=== PATIENT | female | born 1930 | race Caucasian/White ===

== ENCOUNTER 2019-04-11 17:49 | Inpatient (IN) ==
[2019-04-11] MEDS ORDERED: ONDANSETRON 4 MG/2 ML VIAL IV STA (18:23)
[2019-04-11] MEDS ORDERED: SODIUM CHLORIDE 0.9% 1,000 ML IV STA (18:23)
[2019-04-11 18:49] LABS: Basophils % 0.2 % (0.0-0.8); Eosinophils % 0.1 % (0.00-10.9); Hematocrit 32.9 VOL% (35.7-47.0); Hemoglobin 10.4 GM/DL (12.0-16.0); Immature Granulocytes % 0.7 %; Immature Granulocytes Absolute 0.13 #; Lymphocytes # 0.2 10*3/uL (1.4-4.0); Lymphocytes % 1.4 % (21.3-54.2); Mean Corpuscular HGB Conc 31.6 GM/DL (32-36); Mean Corpuscular Volume 95.1 FL (87-102); Mean Platelet Volume 8.6 FL (9.6-12.0); Monocytes % 5.9 % (1.7-12.7); Neutrophils % 91.7 % (38.7-73.9); Platelet Count 255 T/CUMM (130-400); Red Blood Count 3.46 MC/CUMM (3.8-5.5); Red Cell Distribution Width 13.3 % (9.3-17.3); White Blood Count 17.4 T/CUMM (4-12)
[2019-04-11 19:04] LABS: Albumin 2.5 G/DL (3.4-5.0); Bilirubin,Total 0.8 MG/DL (0.2-1.0); Calcium 8.4 MG/DL (8.5-10.1); Osmolality,Calculated 297.8 MOS/KG (273-304); Total Protein 5.9 G/DL (6.4-8.3)
[2019-04-11] MEDS ORDERED: PANTOPRAZOLE INJ 80 MG in SODIUM CHLORIDE 0.9% 100 ML IV ONE (19:10)
[2019-04-11 19:25] LABS: Apearance,Urine CLOUDY (Clear); Bacteria,Urine Occasional /HPF (Few); Bilirubin,Urine Negative (Negative); Blood, Urine Small mg/dL (Negative); Glucose,Urine (UA) Negative (Negative); Ketones,Urine Negative (Negative); Mucus,Urine Occasional /LPF (Occasional); Nitrite,Urine Negative (Negative); Protein,Urine Negative; RBC,Urine 3 /HPF (0-4); Squamous Epithelial Cell,Urine Occasional /HPF (0-10); Urine Color Yellow (Yellow); Urine Specific Gravity 1.009 (1.001-1.035); WBC,Urine 98 /HPF (0-6)
[2019-04-11 19:28] LABS: Lymphocytes 1 % (20-55); Segmented Neutrophils 94 % (50-85); Total Cells Counted 100
[2019-04-11 19:29] LABS: Platelet Estimate Normal; Polychromasia Few
[2019-04-11 19:30] LABS: Anisocytosis Slight; Hypochromasia Slight
[2019-04-11] MEDS ORDERED: LEVOFLOXACIN INJ 500 MG in PREMIX 1 EACH IV STA (19:44)
[2019-04-11] MEDS ORDERED: ONDANSETRON 4 MG/2 ML VIAL IV PRN (20:42)
[2019-04-11] MEDS ORDERED: SODIUM CHLORIDE 0.9% 1,000 ML IV SCH (21:00)
[2019-04-11] MEDS ORDERED: DEXTROSE 50% 25 GM/50 ML VIAL IV PRN (21:02)
[2019-04-11] MEDS ORDERED: GLUCAGON 1 MG VIAL IM PRN (21:02)
[2019-04-11 23:38] LABS: Hematocrit 28.7 VOL% (35.7-47.0); Hemoglobin 9.2 GM/DL (12.0-16.0)
[2019-04-12] MEDS: INSULIN LISPRO 100 UNIT/ML SUBCUT SCH ×4 (00:31→19:21)
[2019-04-12 00:52] LABS: Basophils % 0.2 % (0.0-0.8); Hematocrit 29.7 VOL% (35.7-47.0); Hemoglobin 9.5 GM/DL (12.0-16.0); Immature Granulocytes % 1.2 %; Immature Granulocytes Absolute 0.28 #; Lymphocytes # 0.5 10*3/uL (1.4-4.0); Lymphocytes % 2.2 % (21.3-54.2); Mean Platelet Volume 9.1 FL (9.6-12.0); Monocytes % 4.8 % (1.7-12.7); Neutrophils % 91.6 % (38.7-73.9); Platelet Count 256 T/CUMM (130-400); Red Blood Count 3.16 MC/CUMM (3.8-5.5); Red Cell Distribution Width 13.3 % (9.3-17.3); White Blood Count 22.7 T/CUMM (4-12)
[2019-04-12] MEDS: QUEtiapine 25 MG TABLET PO SCH ×2 (00:58→20:24)
[2019-04-12 01:04] LABS: PT Patient Result 10.7 SECS (9.6-12.2); Partial Thromboplastin Time 24.5 SECS (20.8-36.0)
[2019-04-12 01:09] LABS: Albumin 2.3 G/DL (3.4-5.0); Bilirubin,Total 1.3 MG/DL (0.2-1.0); Calcium 8.4 MG/DL (8.5-10.1); Osmolality,Calculated 305.1 MOS/KG (273-304); Total Protein 5.2 G/DL (6.4-8.3)
[2019-04-12 01:36] LABS: Band Neutrophils 7 % (0-10); Lymphocytes 2 % (20-55); Segmented Neutrophils 91 % (50-85)
[2019-04-12 01:37] LABS: Platelet Estimate Normal; Total Cells Counted 100
[2019-04-12] MEDS: metroNIDAZOLE INJ 500 MG in PREMIX 1 EACH IV SCH ×4 (02:28→22:52)
[2019-04-12] MEDS: PANTOPRAZOLE INJ 200 MG in SODIUM CHLORIDE 0.9% 250 ML IV SCH ×2 (02:30→10:44)
[2019-04-12] MEDS ORDERED: MAGNESIUM SULF RIDER 2 GM in PREMIX 1 EACH IV ONE (07:23)
[2019-04-12] MEDS ORDERED: LEVOFLOXACIN INJ 500 MG in PREMIX 1 EACH IV ONE (07:30)
[2019-04-12] MEDS: DEXTROSE 5% NACL 0.45% 1,000 ML IV SCH ×2 (08:33→19:20)
[2019-04-12] MEDS ORDERED: METOPROLOL SUCCINATE XL 25 MG TABLET PO SCH (09:00)
[2019-04-12] MEDS ORDERED: LACTATED RINGERS 500 ML IV ONE (09:13)
[2019-04-12 09:23] LABS: Hematocrit 28.5 VOL% (35.7-47.0); Hemoglobin 9.1 GM/DL (12.0-16.0)
[2019-04-12 15:18] LABS: Hematocrit 26.2 VOL% (35.7-47.0); Hemoglobin 8.1 GM/DL (12.0-16.0)
[2019-04-12] MEDS ORDERED: SODIUM CHLORIDE 0.9% 1,000 ML IV PRN ×3 (15:40→15:57)
[2019-04-12] MEDS: cefTRIAXone 2,000 MG in SYRINGE 1 EACH IV SCH (15:57)
[2019-04-12 21:35] LABS: Hematocrit 29.7 VOL% (35.7-47.0); Hemoglobin 9.4 GM/DL (12.0-16.0)
[2019-04-13] MEDS: DEXTROSE 5% NACL 0.45% 1,000 ML IV SCH ×4 (00:33→21:00)
[2019-04-13] MEDS: INSULIN LISPRO 100 UNIT/ML SUBCUT SCH ×4 (00:48→17:13)
[2019-04-13 05:25] LABS: Basophils % 0.2 % (0.0-0.8); Eosinophils # 0.2 10*3/uL (0.0-0.87); Eosinophils % 2.1 % (0.00-10.9); Hematocrit 29.9 VOL% (35.7-47.0); Hemoglobin 9.5 GM/DL (12.0-16.0); Immature Granulocytes % 0.6 %; Immature Granulocytes Absolute 0.05 #; Lymphocytes # 0.8 10*3/uL (1.4-4.0); Lymphocytes % 10.2 % (21.3-54.2); Mean Corpuscular HGB Conc 31.8 GM/DL (32-36); Mean Corpuscular Volume 94.3 FL (87-102); Mean Platelet Volume 9.1 FL (9.6-12.0); Monocytes % 6.2 % (1.7-12.7); Neutrophils % 80.7 % (38.7-73.9); Platelet Count 195 T/CUMM (130-400); Red Blood Count 3.17 MC/CUMM (3.8-5.5); Red Cell Distribution Width 14.4 % (9.3-17.3); White Blood Count 8.2 T/CUMM (4-12)
[2019-04-13] MEDS: metroNIDAZOLE INJ 500 MG in PREMIX 1 EACH IV SCH ×2 (06:00→15:45)
[2019-04-13 06:07] LABS: Albumin 1.8 G/DL (3.4-5.0); Bilirubin,Direct 0.18 MG/DL (0.0-0.20); Bilirubin,Indirect 0.3 MG/DL (0.0-1.0); Bilirubin,Total 0.5 MG/DL (0.2-1.0); Calcium 7.9 MG/DL (8.5-10.1); Osmolality,Calculated 297.6 MOS/KG (273-304); Total Protein 4.5 G/DL (6.4-8.3)
[2019-04-13] MEDS ORDERED: LEVOFLOXACIN INJ 250 MG in PREMIX 1 EACH IV SCH (07:30)
[2019-04-13 09:05] LABS: Hemoglobin 9.8 GM/DL (12.0-16.0)
[2019-04-13] MEDS: PANTOPRAZOLE INJ 200 MG in SODIUM CHLORIDE 0.9% 250 ML IV SCH (10:05)
[2019-04-13] MEDS: cefTRIAXone 2,000 MG in SYRINGE 1 EACH IV SCH (15:40)
[2019-04-13 16:22] LABS: Hematocrit 32.7 VOL% (35.7-47.0); Hemoglobin 10.5 GM/DL (12.0-16.0)
[2019-04-13] MEDS: QUEtiapine 25 MG TABLET PO SCH (20:34)
[2019-04-14] MEDS: INSULIN LISPRO 100 UNIT/ML SUBCUT SCH ×5 (01:17→23:51)
[2019-04-14] MEDS: metroNIDAZOLE INJ 500 MG in PREMIX 1 EACH IV SCH ×4 (01:19→23:50)
[2019-04-14 05:39] LABS: Basophils % 0.3 % (0.0-0.8); Eosinophils # 0.2 10*3/uL (0.0-0.87); Eosinophils % 3.2 % (0.00-10.9); Hematocrit 30.8 VOL% (35.7-47.0); Hemoglobin 10.2 GM/DL (12.0-16.0); Immature Granulocytes % 0.8 %; Immature Granulocytes Absolute 0.05 #; Lymphocytes # 0.9 10*3/uL (1.4-4.0); Lymphocytes % 13.1 % (21.3-54.2); Mean Corpuscular HGB Conc 33.1 GM/DL (32-36); Mean Corpuscular Volume 91.7 FL (87-102); Monocytes % 6.9 % (1.7-12.7); Neutrophils % 75.7 % (38.7-73.9); Platelet Count 226 T/CUMM (130-400); Red Blood Count 3.36 MC/CUMM (3.8-5.5); Red Cell Distribution Width 13.8 % (9.3-17.3); White Blood Count 6.5 T/CUMM (4-12)
[2019-04-14 06:02] LABS: Calcium 7.5 MG/DL (8.5-10.1); Osmolality,Calculated 286.8 MOS/KG (273-304)
[2019-04-14 06:11] LABS: Albumin 1.9 G/DL (3.4-5.0); Bilirubin,Direct 0.12 MG/DL (0.0-0.20); Bilirubin,Total 1.1 MG/DL (0.2-1.0); Total Protein 4.4 G/DL (6.4-8.3)
[2019-04-14] MEDS: DEXTROSE 5% NACL 0.45% 1,000 ML IV SCH ×3 (06:55→19:01)
[2019-04-14] MEDS ORDERED: POTASSIUM CHLORIDE RIDER 10 MEQ in PREMIX 1 EACH IV PRN (11:41)
[2019-04-14] MEDS ORDERED: MAGNESIUM SULF RIDER 2 GM in PREMIX 1 EACH IV PRN (11:42)
[2019-04-14] MEDS ORDERED: MAGNESIUM SULF RIDER 4 GM in PREMIX 1 EACH IV PRN (11:42)
[2019-04-14] MEDS ORDERED: PANTOPRAZOLE INJ 200 MG in SODIUM CHLORIDE 0.9% 250 ML IV SCH (12:30)
[2019-04-14] MEDS: cefTRIAXone 2,000 MG in SYRINGE 1 EACH IV SCH (14:37)
[2019-04-14] MEDS: POTASSIUM CHLORIDE 20 MEQ TABLET PO PRN ×4 (14:38→23:49)
[2019-04-14] MEDS: QUEtiapine 25 MG TABLET PO SCH (21:14)
[2019-04-15] MEDS: DEXTROSE 5% NACL 0.45% 1,000 ML IV SCH ×3 (03:36→17:12)
[2019-04-15 04:38] LABS: Basophils % 0.4 % (0.0-0.8); Eosinophils # 0.3 10*3/uL (0.0-0.87); Hematocrit 30.9 VOL% (35.7-47.0); Immature Granulocytes % 0.6 %; Immature Granulocytes Absolute 0.03 #; Lymphocytes # 0.9 10*3/uL (1.4-4.0); Lymphocytes % 16.5 % (21.3-54.2); Mean Corpuscular HGB Conc 32.4 GM/DL (32-36); Monocytes % 6.9 % (1.7-12.7); Neutrophils % 69.6 % (38.7-73.9); Platelet Count 214 T/CUMM (130-400); Red Blood Count 3.36 MC/CUMM (3.8-5.5); Red Cell Distribution Width 13.5 % (9.3-17.3); White Blood Count 5.3 T/CUMM (4-12)
[2019-04-15 05:13] LABS: Albumin 1.9 G/DL (3.4-5.0); Bilirubin,Direct 0.14 MG/DL (0.0-0.20); Bilirubin,Indirect 0.3 MG/DL (0.0-1.0); Bilirubin,Total 0.4 MG/DL (0.2-1.0); Calcium 7.9 MG/DL (8.5-10.1); Osmolality,Calculated 295.3 MOS/KG (273-304); Total Protein 4.5 G/DL (6.4-8.3)
[2019-04-15] MEDS: INSULIN LISPRO 100 UNIT/ML SUBCUT SCH ×3 (06:28→18:04)
[2019-04-15] MEDS: metroNIDAZOLE INJ 500 MG in PREMIX 1 EACH IV SCH ×3 (06:28→23:59)
[2019-04-15] MEDS: PANTOPRAZOLE 40 MG VIAL IV SCH ×2 (09:01→20:45)
[2019-04-15] MEDS: cefTRIAXone 2,000 MG in SYRINGE 1 EACH IV SCH (17:12)
[2019-04-15] MEDS: QUEtiapine 25 MG TABLET PO SCH (20:45)
[2019-04-16] MEDS: DEXTROSE 5% NACL 0.45% 1,000 ML IV SCH ×5 (02:48→23:35)
[2019-04-16] MEDS: INSULIN LISPRO 100 UNIT/ML SUBCUT SCH ×4 (06:05→18:51)
[2019-04-16] MEDS: metroNIDAZOLE INJ 500 MG in PREMIX 1 EACH IV SCH ×3 (06:05→23:35)
[2019-04-16] MEDS: PANTOPRAZOLE 40 MG VIAL IV SCH (08:20)
[2019-04-16] MEDS: cefTRIAXone 2,000 MG in SYRINGE 1 EACH IV SCH (13:27)
[2019-04-16] MEDS: PANTOPRAZOLE 40 MG TABLET PO SCH (20:38)
[2019-04-16] MEDS: QUEtiapine 25 MG TABLET PO SCH (20:38)
[2019-04-17] MEDS: INSULIN LISPRO 100 UNIT/ML SUBCUT SCH ×4 (01:53→14:27)
[2019-04-17] MEDS: DEXTROSE 5% NACL 0.45% 1,000 ML IV SCH ×2 (01:53→14:26)
[2019-04-17 05:38] LABS: Basophils % 0.5 % (0.0-0.8); Eosinophils # 0.4 10*3/uL (0.0-0.87); Eosinophils % 6.5 % (0.00-10.9); Hematocrit 30.2 VOL% (35.7-47.0); Hemoglobin 9.8 GM/DL (12.0-16.0); Immature Granulocytes Absolute 0.06 #; Lymphocytes # 1.2 10*3/uL (1.4-4.0); Lymphocytes % 19.8 % (21.3-54.2); Mean Corpuscular HGB Conc 32.5 GM/DL (32-36); Mean Corpuscular Volume 93.2 FL (87-102); Mean Platelet Volume 8.4 FL (9.6-12.0); Monocytes % 6.3 % (1.7-12.7); Neutrophils % 65.9 % (38.7-73.9); Platelet Count 218 T/CUMM (130-400); Red Blood Count 3.24 MC/CUMM (3.8-5.5); Red Cell Distribution Width 13.5 % (9.3-17.3); White Blood Count 6.2 T/CUMM (4-12)
[2019-04-17] MEDS: metroNIDAZOLE INJ 500 MG in PREMIX 1 EACH IV SCH (06:19)
[2019-04-17] MEDS: PANTOPRAZOLE 40 MG TABLET PO SCH (06:19)
[2019-04-17 14:30] VITALS: BP 150/62
== END 2019-04-17 13:18 | disposition home health service (06) | DRG 378 ==
LOC: N.ED 17:49 → SUATTDRO 20:41 → N.EDINP 20:41 → N.5E 21:02
PROVIDERS: ADMIT Internal Medicine; ATTEND Internal Medicine

== ENCOUNTER 2019-05-20 09:37 | Inpatient (IN) ==
[2019-05-20] MEDS ORDERED: PANTOPRAZOLE 40 MG VIAL IV STA (09:55)
[2019-05-20] MEDS ORDERED: SODIUM CHLORIDE 0.9% 500 ML IV STA (09:55)
[2019-05-20] MEDS ORDERED: ONDANSETRON 4 MG/2 ML VIAL IV STA (09:55)
[2019-05-20 10:50] LABS: Basophils % 0.2 % (0.0-0.8); Eosinophils % 0.3 % (0.00-10.9); Hematocrit 37.1 VOL% (35.7-47.0); Hemoglobin 11.8 GM/DL (12.0-16.0); Immature Granulocytes % 0.6 %; Immature Granulocytes Absolute 0.08 #; Lymphocytes # 1.1 10*3/uL (1.4-4.0); Lymphocytes % 7.8 % (21.3-54.2); Mean Corpuscular HGB Conc 31.8 GM/DL (32-36); Mean Corpuscular Volume 94.4 FL (87-102); Mean Platelet Volume 8.5 FL (9.6-12.0); Monocytes % 4.8 % (1.7-12.7); Neutrophils % 86.3 % (38.7-73.9); Platelet Count 329 T/CUMM (130-400); Red Blood Count 3.93 MC/CUMM (3.8-5.5); Red Cell Distribution Width 14.6 % (9.3-17.3); White Blood Count 13.6 T/CUMM (4-12)
[2019-05-20 10:58] LABS: INR 0.9; PT Patient Result 10.1 SECS (9.6-12.2); Partial Thromboplastin Time 25.2 SECS (20.8-36.0)
[2019-05-20 10:58] LABS: Apearance,Urine Slightly Hazy (Clear); Bacteria,Urine Occasional /HPF (Few); Bilirubin,Urine Negative (Negative); Blood, Urine Small mg/dL (Negative); Glucose,Urine (UA) Negative (Negative); Ketones,Urine Negative (Negative); Mucus,Urine Occasional /LPF (Occasional); Nitrite,Urine Negative (Negative); Protein,Urine Negative; RBC,Urine 2 /HPF (0-4); Squamous Epithelial Cell,Urine Occasional /HPF (0-10); Urine Color Yellow (Yellow); Urine Specific Gravity 1.011 (1.001-1.035); Urine Urobilinogen < 2.0 EU/DL (0.2-1.0); WBC,Urine 24 /HPF (0-6)
[2019-05-20 11:07] LABS: Albumin 2.7 G/DL (3.4-5.0); Bilirubin,Total 0.5 MG/DL (0.2-1.0); Calcium 8.4 MG/DL (8.5-10.1); Osmolality,Calculated 284.3 MOS/KG (273-304); Total Protein 6.1 G/DL (6.4-8.3)
[2019-05-20] MEDS ORDERED: ACETAMINOPHEN 325 MG TABLET PO PRN (13:13)
[2019-05-20] MEDS ORDERED: ONDANSETRON 4 MG/2 ML VIAL IV PRN (13:13)
[2019-05-20] MEDS ORDERED: SODIUM CHLORIDE 0.9% 1,000 ML IV PRN (13:16)
[2019-05-20] MEDS: SODIUM CHLORIDE 0.9% 1,000 ML IV SCH (18:00)
[2019-05-20] MEDS ORDERED: PANTOPRAZOLE INJ 80 MG in SODIUM CHLORIDE 0.9% 100 ML IV ONE (18:30)
[2019-05-20 18:35] LABS: Hematocrit 34.3 VOL% (35.7-47.0); Hemoglobin 10.7 GM/DL (12.0-16.0)
[2019-05-20] MEDS: DONEPEZIL 10 MG TABLET PO SCH (21:18)
[2019-05-20] MEDS: CETIRIZINE 10 MG TABLET PO SCH (21:18)
[2019-05-20] MEDS: MAGNESIUM OXIDE 400 MG TABLET PO SCH (21:18)
[2019-05-20 21:59] LABS: Hematocrit 30.9 VOL% (35.7-47.0); Hemoglobin 9.8 GM/DL (12.0-16.0)
[2019-05-20] MEDS: PANTOPRAZOLE INJ 200 MG in SODIUM CHLORIDE 0.9% 250 ML IV SCH (22:31)
[2019-05-21 03:01] LABS: Basophils % 0.3 % (0.0-0.8); Eosinophils # 0.1 10*3/uL (0.0-0.87); Eosinophils % 1.2 % (0.00-10.9); Hematocrit 30.4 VOL% (35.7-47.0); Hemoglobin 9.5 GM/DL (12.0-16.0); Immature Granulocytes % 0.1 %; Immature Granulocytes Absolute 0.01 #; Lymphocytes # 1.2 10*3/uL (1.4-4.0); Lymphocytes % 13.5 % (21.3-54.2); Mean Corpuscular HGB Conc 31.3 GM/DL (32-36); Mean Corpuscular Volume 94.1 FL (87-102); Mean Platelet Volume 8.5 FL (9.6-12.0); Monocytes % 5.9 % (1.7-12.7); Platelet Count 253 T/CUMM (130-400); Red Blood Count 3.23 MC/CUMM (3.8-5.5); Red Cell Distribution Width 14.8 % (9.3-17.3)
[2019-05-21 03:02] LABS: Hematocrit 29.8 VOL% (35.7-47.0); Hemoglobin 9.5 GM/DL (12.0-16.0)
[2019-05-21 03:13] LABS: Calcium 8.1 MG/DL (8.5-10.1); Osmolality,Calculated 283.3 MOS/KG (273-304)
[2019-05-21] MEDS: SODIUM CHLORIDE 0.9% 1,000 ML IV SCH ×2 (06:23→17:23)
[2019-05-21 06:40] LABS: Hematocrit 30.7 VOL% (35.7-47.0); Hemoglobin 9.7 GM/DL (12.0-16.0)
[2019-05-21] MEDS ORDERED: FERROUS SULFATE 325 MG TABLET PO SCH (09:00)
[2019-05-21] MEDS: CHOLECALCIFEROL 1,000 UNIT TABLET PO SCH (10:07)
[2019-05-21] MEDS: MAGNESIUM OXIDE 400 MG TABLET PO SCH ×2 (10:07→20:17)
[2019-05-21] MEDS: METOPROLOL SUCCINATE XL 50 MG TABLET PO SCH (10:07)
[2019-05-21] MEDS: LACTOBACILLUS ACIDOPHILUS/BULGARICUS CAPLET PO SCH (10:07)
[2019-05-21] MEDS: amLODIPine 10 MG TABLET PO SCH (10:07)
[2019-05-21] MEDS: PANTOPRAZOLE 40 MG VIAL IV SCH ×2 (10:08→22:54)
[2019-05-21 10:16] LABS: Hematocrit 33.2 VOL% (35.7-47.0); Hemoglobin 10.5 GM/DL (12.0-16.0)
[2019-05-21] MEDS: CETIRIZINE 10 MG TABLET PO SCH (20:17)
[2019-05-21] MEDS: DONEPEZIL 10 MG TABLET PO SCH (20:17)
[2019-05-22 06:18] LABS: Basophils % 0.4 % (0.0-0.8); Eosinophils # 0.2 10*3/uL (0.0-0.87); Eosinophils % 2.3 % (0.00-10.9); Hematocrit 31.8 VOL% (35.7-47.0); Hemoglobin 10.1 GM/DL (12.0-16.0); Immature Granulocytes % 0.6 %; Immature Granulocytes Absolute 0.05 #; Lymphocytes # 1.3 10*3/uL (1.4-4.0); Lymphocytes % 16.2 % (21.3-54.2); Mean Corpuscular HGB Conc 31.8 GM/DL (32-36); Mean Corpuscular Volume 94.1 FL (87-102); Mean Platelet Volume 8.7 FL (9.6-12.0); Monocytes % 7.5 % (1.7-12.7); Platelet Count 254 T/CUMM (130-400); Red Blood Count 3.38 MC/CUMM (3.8-5.5); Red Cell Distribution Width 14.2 % (9.3-17.3); White Blood Count 7.9 T/CUMM (4-12)
[2019-05-22 06:42] LABS: Calcium 7.7 MG/DL (8.5-10.1); Osmolality,Calculated 287.7 MOS/KG (273-304)
[2019-05-22] MEDS ORDERED: PROPOFOL 200 MG/20 ML VIAL IV ONE (10:00)
[2019-05-22] MEDS: SODIUM CHLORIDE 0.9% 1,000 ML IV SCH ×2 (10:00→21:48)
[2019-05-22] MEDS ORDERED: ETOMIDATE 20 MG/10 ML VIAL IV ONE (10:00)
[2019-05-22] MEDS ORDERED: LIDOCAINE 2% 5 ML VIAL ONE (10:00)
[2019-05-22] MEDS: PANTOPRAZOLE 40 MG VIAL IV SCH ×2 (13:49→20:58)
[2019-05-22] MEDS: CHOLECALCIFEROL 1,000 UNIT TABLET PO SCH (13:50)
[2019-05-22] MEDS: MAGNESIUM OXIDE 400 MG TABLET PO SCH ×2 (13:50→20:57)
[2019-05-22] MEDS: LACTOBACILLUS ACIDOPHILUS/BULGARICUS CAPLET PO SCH (13:50)
[2019-05-22] MEDS: amLODIPine 10 MG TABLET PO SCH (13:50)
[2019-05-22] MEDS: METOPROLOL SUCCINATE XL 50 MG TABLET PO SCH (13:51)
[2019-05-22] MEDS: PANTOPRAZOLE INJ 200 MG in SODIUM CHLORIDE 0.9% 250 ML IV SCH (18:22)
[2019-05-22] MEDS: CETIRIZINE 10 MG TABLET PO SCH (20:58)
[2019-05-22] MEDS: DONEPEZIL 10 MG TABLET PO SCH (20:58)
[2019-05-22] MEDS ORDERED: MIRTAZAPINE 15 MG TABLET PO SCH (21:00)
[2019-05-22] MEDS ORDERED: GLUCAGON 1 MG VIAL IM PRN (21:20)
[2019-05-22] MEDS ORDERED: DEXTROSE 50% 25 GM/50 ML VIAL IV PRN (21:20)
[2019-05-22] MEDS: INSULIN REGULAR 100 UNIT/ML SUBCUT SCH (21:30)
[2019-05-23] MEDS: INSULIN REGULAR 100 UNIT/ML SUBCUT SCH ×2 (07:51→12:26)
[2019-05-23 08:01] LABS: Basophils % 0.5 % (0.0-0.8); Eosinophils # 0.1 10*3/uL (0.0-0.87); Eosinophils % 1.7 % (0.00-10.9); Hemoglobin 10.2 GM/DL (12.0-16.0); Immature Granulocytes % 0.5 %; Immature Granulocytes Absolute 0.03 #; Lymphocytes # 1.3 10*3/uL (1.4-4.0); Lymphocytes % 20.3 % (21.3-54.2); Mean Corpuscular HGB Conc 31.9 GM/DL (32-36); Mean Corpuscular Volume 93.6 FL (87-102); Mean Platelet Volume 8.5 FL (9.6-12.0); Monocytes % 8.9 % (1.7-12.7); Neutrophils % 68.1 % (38.7-73.9); Platelet Count 216 T/CUMM (130-400); Red Blood Count 3.42 MC/CUMM (3.8-5.5); Red Cell Distribution Width 14.5 % (9.3-17.3); White Blood Count 6.5 T/CUMM (4-12)
[2019-05-23] MEDS: PANTOPRAZOLE 40 MG VIAL IV SCH (08:11)
[2019-05-23] MEDS: amLODIPine 10 MG TABLET PO SCH (08:12)
[2019-05-23] MEDS: LACTOBACILLUS ACIDOPHILUS/BULGARICUS CAPLET PO SCH (08:12)
[2019-05-23] MEDS: MAGNESIUM OXIDE 400 MG TABLET PO SCH (08:12)
[2019-05-23] MEDS: METOPROLOL SUCCINATE XL 50 MG TABLET PO SCH (08:12)
[2019-05-23] MEDS: CHOLECALCIFEROL 1,000 UNIT TABLET PO SCH (08:12)
[2019-05-23] MEDS: INSULIN LISPRO 100 UNIT/ML SUBCUT SCH ×2 (08:14→12:26)
[2019-05-23] MEDS: SODIUM CHLORIDE 0.9% 1,000 ML IV SCH (08:15)
[2019-05-23] MEDS ORDERED: INSULIN GLARGINE 100 UNIT/ML SUBCUT SCH (09:00)
[2019-05-23 12:38] VITALS: BP 128/60
== END 2019-05-23 12:35 | disposition home health service (06) | DRG 378 ==
LOC: N.ED 09:37 → N.EDINP 13:13 → SUATTDRO 13:13 → N.EDINP 17:23 → N.2E 17:31
PROVIDERS: ADMIT Emergency Medicine; ATTEND Internal Medicine

== ENCOUNTER 2019-06-19 23:35 | Inpatient (IN) ==
[2019-06-19] MEDS ORDERED: SODIUM CHLORIDE 0.9% 500 ML IV STA (23:57)
[2019-06-19] MEDS ORDERED: PANTOPRAZOLE 40 MG VIAL IV STA (23:57)
[2019-06-19] MEDS ORDERED: METOCLOPRAMIDE 10 MG/2 ML VIAL IV STA (23:57)
[2019-06-20] MEDS ORDERED: DICYCLOMINE 20 MG/2 ML AMP IM ONE (00:14)
[2019-06-20 00:38] LABS: Alanine Aminotransferase 13 U/L (13-56); Albumin 2.4 G/DL (3.4-5.0); Alkaline Phosphatase 110 U/L (45-117); Amylase 82 U/L (25-115); Aspartate Amino Transferase 13 U/L (0-37); Bilirubin,Total < 0.39 MG/DL (0.2-1.0); Blood Urea Nitrogen 16 MG/DL (7-18); Calcium 8.2 MG/DL (8.5-10.1); Estimated Glom Filtration Rate 44 ML/MIN; Glucose 145 MG/DL (74-106); Osmolality,Calculated 286.1 MOS/KG (273-304); Total Protein 5.9 G/DL (6.4-8.3); Troponin I < 0.015 NG/ML (0.00-0.045)
[2019-06-20] MEDS ORDERED: SODIUM CHLORIDE 0.9% 1,000 ML IV STA (00:47)
[2019-06-20 01:11] LABS: Apearance,Urine CLOUDY (Clear); Bilirubin,Urine Negative (Negative); Blood, Urine Small mg/dL (Negative); Glucose,Urine (UA) >=500 mg/dL (Negative); Hyaline Casts,Urine 9 /LPF (0-3); Ketones,Urine Negative (Negative); Nitrite,Urine Negative (Negative); Protein,Urine Negative; RBC,Urine 81 /HPF (0-4); Squamous Epithelial Cell,Urine Occasional /HPF (0-10); Urine Color Yellow (Yellow); Urine Specific Gravity 1.009 (1.001-1.035); Urine Urobilinogen < 2.0 EU/DL (0.2-1.0); WBC,Urine 293 /HPF (0-6)
[2019-06-20 01:25] LABS: Basophils % 0.3 % (0.0-0.8); Eosinophils # 0.2 10*3/uL (0.0-0.87); Hematocrit 36.3 VOL% (35.7-47.0); Hemoglobin 11.4 GM/DL (12.0-16.0); Immature Granulocytes % 1.7 %; Lymphocytes # 1.6 10*3/uL (1.4-4.0); Mean Corpuscular HGB Conc 31.4 GM/DL (32-36); Mean Corpuscular Volume 92.8 FL (87-102); Mean Platelet Volume 8.4 FL (9.6-12.0); Monocytes % 5.4 % (1.7-12.7); Neutrophils % 77.6 % (38.7-73.9); Platelet Count 403 T/CUMM (130-400); Red Blood Count 3.91 MC/CUMM (3.8-5.5); Red Cell Distribution Width 14.6 % (9.3-17.3)
[2019-06-20] MEDS ORDERED: NITROFURANTOIN MACRO/MONO 100 MG CAPSULE PO ONE (02:39)
[2019-06-20] MEDS ORDERED: NICOTINE 21 MG/24 HR PATCH TRANSDERM PRN (02:47)
[2019-06-20] MEDS ORDERED: ONDANSETRON 4 MG/2 ML VIAL IV PRN (02:47)
[2019-06-20] MEDS ORDERED: diphenhydrAMINE CAP 25 MG CAPSULE PO PRN (02:47)
[2019-06-20] MEDS ORDERED: ACETAMINOPHEN 325 MG TABLET PO PRN (02:47)
[2019-06-20] MEDS ORDERED: GLUCAGON 1 MG VIAL IM PRN (02:47)
[2019-06-20] MEDS ORDERED: DEXTROSE 10% 250 ML BAG IV PRN (02:47)
[2019-06-20] MEDS: SODIUM CHLORIDE 0.9% 1,000 ML IV SCH ×3 (03:50→22:50)
[2019-06-20] MEDS: POTASSIUM CHLORIDE 20 MEQ TABLET PO PRN ×3 (05:01→18:48)
[2019-06-20] MEDS: INSULIN REGULAR 100 UNIT/ML SUBCUT SCH ×4 (08:21→21:31)
[2019-06-20] MEDS ORDERED: [UNRECOGNIZED DRUG - OTHER] PO SCH (09:00)
[2019-06-20] MEDS ORDERED: NITROFURANTOIN MACROCRYSTALS 100 MG CAPSULE PO SCH (09:00)
[2019-06-20] MEDS ORDERED: amLODIPine 10 MG TABLET PO SCH (09:00)
[2019-06-20 09:14] LABS: Basophils % 0.3 % (0.0-0.8); Eosinophils % 0.3 % (0.00-10.9); Hematocrit 36.9 VOL% (35.7-47.0); Hemoglobin 11.7 GM/DL (12.0-16.0); Immature Granulocytes % 0.7 %; Immature Granulocytes Absolute 0.09 #; Lymphocytes # 1.1 10*3/uL (1.4-4.0); Lymphocytes % 8.6 % (21.3-54.2); Mean Corpuscular HGB Conc 31.7 GM/DL (32-36); Mean Corpuscular Volume 92.9 FL (87-102); Mean Platelet Volume 8.1 FL (9.6-12.0); Monocytes % 3.1 % (1.7-12.7); Platelet Count 339 T/CUMM (130-400); Red Blood Count 3.97 MC/CUMM (3.8-5.5); Red Cell Distribution Width 14.4 % (9.3-17.3); White Blood Count 12.9 T/CUMM (4-12)
[2019-06-20] MEDS: INSULIN LISPRO 100 UNIT/ML SUBCUT SCH ×2 (10:17→13:31)
[2019-06-20] MEDS: INSULIN GLARGINE 100 UNIT/ML SUBCUT SCH (10:18)
[2019-06-20] MEDS: PANTOPRAZOLE 40 MG VIAL IV SCH ×2 (10:18→21:22)
[2019-06-20] MEDS: MAGNESIUM OXIDE 400 MG TABLET PO SCH ×2 (10:19→21:21)
[2019-06-20] MEDS: METOPROLOL SUCCINATE XL 50 MG TABLET PO SCH (10:19)
[2019-06-20] MEDS: QUEtiapine 25 MG TABLET PO SCH ×2 (10:54→10:58)
[2019-06-20] MEDS: ERTAPENEM 1,000 MG in SODIUM CHLORIDE 0.9% 100 ML IV SCH (16:46)
[2019-06-20] MEDS ORDERED: MIRTAZAPINE 15 MG TABLET PO SCH (21:00)
[2019-06-20] MEDS: rOPINIRole 1 MG TABLET PO SCH (21:20)
[2019-06-20] MEDS: DONEPEZIL 10 MG TABLET PO SCH (21:30)
[2019-06-21 02:00] LABS: Calcium 7.7 MG/DL (8.5-10.1); Osmolality,Calculated 278.3 MOS/KG (273-304)
[2019-06-21] MEDS ORDERED: QUEtiapine 25 MG TABLET PO SCH (09:00)
[2019-06-21] MEDS: INSULIN REGULAR 100 UNIT/ML SUBCUT SCH ×4 (09:13→21:23)
[2019-06-21] MEDS: PANTOPRAZOLE 40 MG VIAL IV SCH ×2 (10:47→21:21)
[2019-06-21] MEDS: MAGNESIUM OXIDE 400 MG TABLET PO SCH ×2 (10:48→21:21)
[2019-06-21] MEDS: amLODIPine 5 MG TABLET PO SCH (10:48)
[2019-06-21] MEDS: METOPROLOL SUCCINATE XL 50 MG TABLET PO SCH (10:48)
[2019-06-21] MEDS: INSULIN GLARGINE 100 UNIT/ML SUBCUT SCH (10:49)
[2019-06-21] MEDS ORDERED: MAGNESIUM SULF RIDER 4 GM in PREMIX 1 EACH IV PRN (12:06)
[2019-06-21] MEDS ORDERED: NICOTINE 14 MG/24 HR PATCH TRANSDERM SCH (12:30)
[2019-06-21] MEDS: DEXTROSE 5% NACL 0.45% 1,000 ML IV SCH (14:32)
[2019-06-21] MEDS: ERTAPENEM 1,000 MG in SODIUM CHLORIDE 0.9% 100 ML IV SCH (14:32)
[2019-06-21] MEDS: SODIUM CHLORIDE 0.9% 1,000 ML IV SCH (14:39)
[2019-06-21] MEDS: MAGNESIUM SULF RIDER 2 GM in PREMIX 1 EACH IV PRN (16:04)
[2019-06-21] MEDS: MELATONIN 3 MG TABLET PO SCH (21:20)
[2019-06-21] MEDS: DONEPEZIL 10 MG TABLET PO SCH (21:20)
[2019-06-21] MEDS: rOPINIRole 1 MG TABLET PO SCH (21:21)
[2019-06-22 04:49] LABS: Basophils % 0.1 % (0.0-0.8); Eosinophils # 0.3 10*3/uL (0.0-0.87); Eosinophils % 3.7 % (0.00-10.9); Hematocrit 29.4 VOL% (35.7-47.0); Hemoglobin 9.2 GM/DL (12.0-16.0); Immature Granulocytes % 0.4 %; Immature Granulocytes Absolute 0.03 #; Lymphocytes % 13.4 % (21.3-54.2); Mean Corpuscular HGB Conc 31.3 GM/DL (32-36); Mean Corpuscular Volume 92.5 FL (87-102); Mean Platelet Volume 8.1 FL (9.6-12.0); Neutrophils % 78.4 % (38.7-73.9); Platelet Count 268 T/CUMM (130-400); Red Blood Count 3.18 MC/CUMM (3.8-5.5); Red Cell Distribution Width 14.5 % (9.3-17.3); White Blood Count 7.5 T/CUMM (4-12)
[2019-06-22 05:04] LABS: Alanine Aminotransferase 19 U/L (13-56); Albumin 1.7 G/DL (3.4-5.0); Alkaline Phosphatase 118 U/L (45-117); Aspartate Amino Transferase 18 U/L (0-37); Bilirubin,Total < 0.39 MG/DL (0.2-1.0); Blood Urea Nitrogen 8 MG/DL (7-18); Calcium 7.5 MG/DL (8.5-10.1); Estimated Glom Filtration Rate 71 ML/MIN; Glucose 162 MG/DL (74-106); Osmolality,Calculated 276.7 MOS/KG (273-304); Total Protein 3.9 G/DL (6.4-8.3)
[2019-06-22] MEDS: DEXTROSE 5% NACL 0.45% 1,000 ML IV SCH ×2 (05:40→15:30)
[2019-06-22] MEDS: METOPROLOL SUCCINATE XL 50 MG TABLET PO SCH (09:32)
[2019-06-22] MEDS: MAGNESIUM OXIDE 400 MG TABLET PO SCH ×2 (09:32→20:28)
[2019-06-22] MEDS: amLODIPine 5 MG TABLET PO SCH (09:32)
[2019-06-22] MEDS: INSULIN REGULAR 100 UNIT/ML SUBCUT SCH ×4 (09:32→20:35)
[2019-06-22] MEDS: PANTOPRAZOLE 40 MG VIAL IV SCH ×2 (09:33→20:45)
[2019-06-22] MEDS: ERTAPENEM 1,000 MG in SODIUM CHLORIDE 0.9% 100 ML IV SCH (09:36)
[2019-06-22] MEDS ORDERED: ZINC OXIDE 16% PASTE 57 GM TUBE TOP PRN (10:34)
[2019-06-22] MEDS: DONEPEZIL 10 MG TABLET PO SCH (20:29)
[2019-06-22] MEDS: MELATONIN 3 MG TABLET PO SCH (20:29)
[2019-06-22] MEDS: MIRTAZAPINE 15 MG TABLET PO SCH (20:29)
[2019-06-22] MEDS: rOPINIRole 1 MG TABLET PO SCH (20:29)
[2019-06-22] MEDS ORDERED: QUEtiapine 25 MG TABLET PO SCH (21:00)
[2019-06-23] MEDS: MAGNESIUM SULF RIDER 2 GM in PREMIX 1 EACH IV PRN (05:54)
[2019-06-23] MEDS: INSULIN REGULAR 100 UNIT/ML SUBCUT SCH ×4 (07:36→21:18)
[2019-06-23] MEDS: CEFUROXIME 500 MG TABLET PO SCH ×2 (08:37→21:01)
[2019-06-23] MEDS: amLODIPine 5 MG TABLET PO SCH (08:37)
[2019-06-23] MEDS: PANTOPRAZOLE 40 MG VIAL IV SCH ×2 (08:37→21:08)
[2019-06-23] MEDS: METOPROLOL SUCCINATE XL 25 MG TABLET PO SCH (08:37)
[2019-06-23] MEDS: MAGNESIUM OXIDE 400 MG TABLET PO SCH ×2 (08:37→21:02)
[2019-06-23] MEDS: DEXTROSE 5% NACL 0.45% 1,000 ML IV SCH (12:40)
[2019-06-23] MEDS: MIRTAZAPINE 15 MG TABLET PO SCH (21:01)
[2019-06-23] MEDS: MELATONIN 3 MG TABLET PO SCH (21:01)
[2019-06-23] MEDS: rOPINIRole 1 MG TABLET PO SCH (21:02)
[2019-06-23] MEDS: DONEPEZIL 10 MG TABLET PO SCH (21:02)
[2019-06-24] MEDS: INSULIN REGULAR 100 UNIT/ML SUBCUT SCH ×2 (07:31→12:11)
[2019-06-24] MEDS: DEXTROSE 5% NACL 0.45% 1,000 ML IV SCH (09:19)
[2019-06-24] MEDS: PANTOPRAZOLE 40 MG VIAL IV SCH (09:19)
[2019-06-24] MEDS: amLODIPine 5 MG TABLET PO SCH (09:20)
[2019-06-24] MEDS: CEFUROXIME 500 MG TABLET PO SCH (09:20)
[2019-06-24] MEDS: MAGNESIUM OXIDE 400 MG TABLET PO SCH (09:20)
[2019-06-24] MEDS: METOPROLOL SUCCINATE XL 25 MG TABLET PO SCH (09:20)
[2019-06-24 12:08] VITALS: BP 123/49
== END 2019-06-24 14:01 | disposition home health service (06) | DRG 312 ==
LOC: EDUNIT# → EDBD → N.ED 23:35 → N.EDINP 06-20 02:47 → SUATTDRO 06-20 02:47 → N.2E 06-20 03:18
PROVIDERS: ADMIT Internal Medicine; ATTEND Internal Medicine

== ENCOUNTER 2019-07-25 23:20 | Inpatient (IN) ==
[2019-07-25 23:52] LABS: Basophils % 0.4 % (0.0-0.8); Eosinophils # 0.1 10*3/uL (0.0-0.87); Eosinophils % 1.2 % (0.00-10.9); Hemoglobin 10.8 GM/DL (12.0-16.0); Immature Granulocytes % 0.5 %; Immature Granulocytes Absolute 0.05 #; Lymphocytes # 1.8 10*3/uL (1.4-4.0); Lymphocytes % 17.1 % (21.3-54.2); Mean Corpuscular HGB Conc 31.8 GM/DL (32-36); Mean Corpuscular Volume 92.1 FL (87-102); Mean Platelet Volume 8.5 FL (9.6-12.0); Monocytes % 5.7 % (1.7-12.7); Neutrophils % 75.1 % (38.7-73.9); Platelet Count 302 T/CUMM (130-400); Red Blood Count 3.69 MC/CUMM (3.8-5.5); Red Cell Distribution Width 14.6 % (9.3-17.3); White Blood Count 10.4 T/CUMM (4-12)
[2019-07-25 23:59] LABS: INR 0.9
[2019-07-26 00:39] LABS: Alanine Aminotransferase 11 U/L (13-56); Albumin 2.4 G/DL (3.4-5.0); Alkaline Phosphatase 76 U/L (45-117); Aspartate Amino Transferase 16 U/L (0-37); Bilirubin,Total < 0.39 MG/DL (0.2-1.0); Blood Urea Nitrogen 17 MG/DL (7-18); Calcium 8.4 MG/DL (8.5-10.1); Estimated Glom Filtration Rate 61 ML/MIN; Glucose 197 MG/DL (74-106); Osmolality,Calculated 283.5 MOS/KG (273-304); Total Protein 5.6 G/DL (6.4-8.3); Troponin I < 0.015 NG/ML (0.00-0.045)
[2019-07-26 02:13] LABS: Apearance,Urine CLOUDY (Clear); Bacteria,Urine Occasional /HPF (Few); Bilirubin,Urine Negative (Negative); Blood, Urine Negative (Negative); Glucose,Urine (UA) Negative (Negative); Hyaline Casts,Urine 6 /LPF (0-3); Ketones,Urine Negative (Negative); Mucus,Urine Occasional /LPF (Occasional); Nitrite,Urine Negative (Negative); Protein,Urine Negative; RBC,Urine 8 /HPF (0-4); Squamous Epithelial Cell,Urine Occasional /HPF (0-10); Urine Color Yellow (Yellow); Urine Specific Gravity 1.013 (1.001-1.035); Urine Urobilinogen < 2.0 EU/DL (0.2-1.0); WBC,Urine 62 /HPF (0-6)
[2019-07-26] MEDS ORDERED: DEXTROSE 50% 25 GM/50 ML SYRINGE IV PRN (05:37)
[2019-07-26] MEDS ORDERED: GLUCAGON 1 MG VIAL IM PRN (05:37)
[2019-07-26] MEDS ORDERED: ZINC OXIDE 16% PASTE 57 GM TUBE TOP PRN (05:37)
[2019-07-26] MEDS ORDERED: DOCUSATE SODIUM 100 MG CAPSULE PO PRN (05:37)
[2019-07-26] MEDS ORDERED: ONDANSETRON 4 MG/2 ML VIAL IV PRN (05:37)
[2019-07-26] MEDS ORDERED: ACETAMINOPHEN 325 MG TABLET PO PRN (05:37)
[2019-07-26] MEDS: cefTRIAXone 1,000 MG in SYRINGE 1 EACH IV SCH (06:31)
[2019-07-26] MEDS: CHOLECALCIFEROL 1,000 UNIT TABLET PO SCH (08:39)
[2019-07-26] MEDS: FERROUS SULFATE 325 MG TABLET PO SCH (08:39)
[2019-07-26] MEDS: LACTOBACILLUS ACIDOPHILUS/BULGARICUS CAPLET PO SCH (08:39)
[2019-07-26] MEDS: PANTOPRAZOLE 40 MG TABLET PO SCH ×2 (08:39→18:12)
[2019-07-26] MEDS: METOPROLOL SUCCINATE XL 50 MG TABLET PO SCH (08:40)
[2019-07-26] MEDS: amLODIPine 10 MG TABLET PO SCH (08:40)
[2019-07-26] MEDS: MAGNESIUM OXIDE 400 MG TABLET PO SCH ×2 (08:40→20:41)
[2019-07-26] MEDS: SODIUM CHLORIDE 0.9% 1,000 ML IV SCH ×2 (08:40→19:55)
[2019-07-26] MEDS: INSULIN LISPRO 100 UNIT/ML SUBCUT SCH ×7 (08:40→20:42)
[2019-07-26] MEDS: DONEPEZIL 10 MG TABLET PO SCH (20:41)
[2019-07-26] MEDS ORDERED: CETIRIZINE 10 MG TABLET PO PRN (21:00)
[2019-07-26] MEDS ORDERED: QUEtiapine 25 MG TABLET PO ONE (23:00)
[2019-07-27 05:11] LABS: Basophils % 0.3 % (0.0-0.8); Eosinophils # 0.2 10*3/uL (0.0-0.87); Eosinophils % 3.7 % (0.00-10.9); Hematocrit 29.9 VOL% (35.7-47.0); Hemoglobin 9.5 GM/DL (12.0-16.0); Immature Granulocytes % 0.3 %; Immature Granulocytes Absolute 0.02 #; Lymphocytes # 1.9 10*3/uL (1.4-4.0); Lymphocytes % 30.1 % (21.3-54.2); Mean Corpuscular HGB Conc 31.8 GM/DL (32-36); Mean Corpuscular Volume 92.6 FL (87-102); Mean Platelet Volume 8.5 FL (9.6-12.0); Monocytes % 6.8 % (1.7-12.7); Neutrophils % 58.8 % (38.7-73.9); Platelet Count 251 T/CUMM (130-400); Red Blood Count 3.23 MC/CUMM (3.8-5.5); Red Cell Distribution Width 14.6 % (9.3-17.3); White Blood Count 6.2 T/CUMM (4-12)
[2019-07-27 05:26] LABS: Calcium 7.8 MG/DL (8.5-10.1); Osmolality,Calculated 281.1 MOS/KG (273-304)
[2019-07-27] MEDS: INSULIN LISPRO 100 UNIT/ML SUBCUT SCH ×7 (08:33→20:57)
[2019-07-27] MEDS: FERROUS SULFATE 325 MG TABLET PO SCH (09:10)
[2019-07-27] MEDS: CHOLECALCIFEROL 1,000 UNIT TABLET PO SCH (09:10)
[2019-07-27] MEDS: METOPROLOL SUCCINATE XL 50 MG TABLET PO SCH (09:10)
[2019-07-27] MEDS: LACTOBACILLUS ACIDOPHILUS/BULGARICUS CAPLET PO SCH (09:11)
[2019-07-27] MEDS: PANTOPRAZOLE 40 MG TABLET PO SCH ×2 (09:11→19:26)
[2019-07-27] MEDS: MAGNESIUM OXIDE 400 MG TABLET PO SCH ×2 (09:11→20:37)
[2019-07-27] MEDS: cefTRIAXone 1,000 MG in SYRINGE 1 EACH IV SCH (09:12)
[2019-07-27] MEDS: amLODIPine 10 MG TABLET PO SCH (09:12)
[2019-07-27] MEDS: SODIUM CHLORIDE 0.9% 1,000 ML IV SCH ×2 (09:12→23:22)
[2019-07-27] MEDS: DONEPEZIL 10 MG TABLET PO SCH (20:37)
[2019-07-28 05:21] LABS: Basophils % 0.5 % (0.0-0.8); Eosinophils # 0.2 10*3/uL (0.0-0.87); Eosinophils % 2.5 % (0.00-10.9); Hematocrit 34.5 VOL% (35.7-47.0); Hemoglobin 10.9 GM/DL (12.0-16.0); Immature Granulocytes % 0.6 %; Immature Granulocytes Absolute 0.05 #; Lymphocytes # 1.9 10*3/uL (1.4-4.0); Lymphocytes % 25.1 % (21.3-54.2); Mean Corpuscular HGB Conc 31.6 GM/DL (32-36); Mean Platelet Volume 8.3 FL (9.6-12.0); Monocytes % 5.2 % (1.7-12.7); Neutrophils % 66.1 % (38.7-73.9); Platelet Count 296 T/CUMM (130-400); Red Blood Count 3.75 MC/CUMM (3.8-5.5); Red Cell Distribution Width 14.5 % (9.3-17.3); White Blood Count 7.7 T/CUMM (4-12)
[2019-07-28 05:35] LABS: Osmolality,Calculated 280.3 MOS/KG (273-304)
[2019-07-28] MEDS: PANTOPRAZOLE 40 MG TABLET PO SCH ×2 (06:02→18:01)
[2019-07-28] MEDS: FERROUS SULFATE 325 MG TABLET PO SCH (09:42)
[2019-07-28] MEDS: LACTOBACILLUS ACIDOPHILUS/BULGARICUS CAPLET PO SCH (09:42)
[2019-07-28] MEDS: MAGNESIUM OXIDE 400 MG TABLET PO SCH ×2 (09:42→22:11)
[2019-07-28] MEDS: METOPROLOL SUCCINATE XL 50 MG TABLET PO SCH (09:42)
[2019-07-28] MEDS: CHOLECALCIFEROL 1,000 UNIT TABLET PO SCH (09:42)
[2019-07-28] MEDS: amLODIPine 10 MG TABLET PO SCH (09:42)
[2019-07-28] MEDS: cefTRIAXone 1,000 MG in SYRINGE 1 EACH IV SCH (09:42)
[2019-07-28] MEDS: INSULIN LISPRO 100 UNIT/ML SUBCUT SCH ×7 (09:45→22:11)
[2019-07-28] MEDS: SODIUM CHLORIDE 0.9% 1,000 ML IV SCH (12:43)
[2019-07-28] MEDS ORDERED: ZALEPLON 5 MG CAPSULE PO PRN (21:39)
[2019-07-28] MEDS: DONEPEZIL 10 MG TABLET PO SCH (22:11)
[2019-07-28] MEDS: levETIRAcetam 500 MG TABLET PO SCH (22:11)
[2019-07-29] MEDS: SODIUM CHLORIDE 0.9% 1,000 ML IV SCH (02:03)
[2019-07-29] MEDS: PANTOPRAZOLE 40 MG TABLET PO SCH (06:02)
[2019-07-29] MEDS: cefTRIAXone 1,000 MG in SYRINGE 1 EACH IV SCH (08:45)
[2019-07-29] MEDS: LACTOBACILLUS ACIDOPHILUS/BULGARICUS CAPLET PO SCH (08:47)
[2019-07-29] MEDS: CHOLECALCIFEROL 1,000 UNIT TABLET PO SCH (08:47)
[2019-07-29] MEDS: amLODIPine 10 MG TABLET PO SCH (08:47)
[2019-07-29] MEDS: MAGNESIUM OXIDE 400 MG TABLET PO SCH (08:47)
[2019-07-29] MEDS: FERROUS SULFATE 325 MG TABLET PO SCH (08:47)
[2019-07-29] MEDS: METOPROLOL SUCCINATE XL 50 MG TABLET PO SCH (08:47)
[2019-07-29] MEDS: levETIRAcetam 500 MG TABLET PO SCH (08:47)
[2019-07-29] MEDS: INSULIN LISPRO 100 UNIT/ML SUBCUT SCH ×4 (08:48→13:01)
[2019-07-29 11:34] VITALS: BP 135/61
== END 2019-07-29 13:29 | disposition home health service (06) | DRG 689 ==
LOC: EDUNIT# → EDBD → N.ED 23:20 → N.EDINP 07-26 04:08 → SUATTDRO 07-26 04:08 → N.2E 07-26 05:25
PROVIDERS: ADMIT Internal Medicine; ATTEND Internal Medicine

== ENCOUNTER 2019-08-03 12:24 | Observation (INO) ==
[2019-08-03 16:41] LABS: Basophils % 0.5 % (0.0-0.8); Eosinophils # 0.2 10*3/uL (0.0-0.87); Eosinophils % 2.3 % (0.00-10.9); Hematocrit 36.5 VOL% (35.7-47.0); Hemoglobin 11.6 GM/DL (12.0-16.0); Immature Granulocytes % 0.4 %; Immature Granulocytes Absolute 0.03 #; Lymphocytes # 1.9 10*3/uL (1.4-4.0); Lymphocytes % 25.1 % (21.3-54.2); Mean Corpuscular HGB Conc 31.8 GM/DL (32-36); Mean Corpuscular Volume 93.1 FL (87-102); Mean Platelet Volume 7.9 FL (9.6-12.0); Neutrophils % 66.7 % (38.7-73.9); Platelet Count 321 T/CUMM (130-400); Red Blood Count 3.92 MC/CUMM (3.8-5.5); Red Cell Distribution Width 14.9 % (9.3-17.3); White Blood Count 7.5 T/CUMM (4-12)
[2019-08-03 17:08] LABS: Albumin 2.7 G/DL (3.4-5.0); Bilirubin,Total 0.8 MG/DL (0.2-1.0); Calcium 8.8 MG/DL (8.5-10.1); Osmolality,Calculated 277.7 MOS/KG (273-304); Thyroid Stimulating Hormone 3.56 uIU/ml (0.358-3.74); Total Protein 6.3 G/DL (6.4-8.3)
[2019-08-03 17:47] LABS: Apearance,Urine CLEAR (Clear); Bacteria,Urine Many /HPF (Few); Bilirubin,Urine Negative (Negative); Blood, Urine Negative (Negative); Glucose,Urine (UA) Negative (Negative); Hyaline Casts,Urine 1 /LPF (0-3); Ketones,Urine Negative (Negative); Mucus,Urine Occasional /LPF (Occasional); Nitrite,Urine Negative (Negative); Protein,Urine 30 MG/DL; Squamous Epithelial Cell,Urine Occasional /HPF (0-10); Urine Color Yellow (Yellow); Urine Specific Gravity 1.012 (1.001-1.035); Urine Urobilinogen < 2.0 EU/DL (0.2-1.0)
[2019-08-03 18:06] LABS: Sedimentation Rate-Westergren 11 MM/HR (0-30)
[2019-08-03] MEDS ORDERED: ACETAMINOPHEN 325 MG TABLET PO PRN (19:41)
[2019-08-03] MEDS ORDERED: ZINC OXIDE 16% PASTE 57 GM TUBE TOP PRN (19:41)
[2019-08-03] MEDS ORDERED: LABETALOL 20 MG/4 ML SYRINGE IV PRN (19:42)
[2019-08-03] MEDS ORDERED: DEXTROSE 50% 25 GM/50 ML SYRINGE IV PRN (19:42)
[2019-08-03] MEDS ORDERED: GLUCAGON 1 MG VIAL IM PRN (19:42)
[2019-08-03] MEDS ORDERED: FAMOTIDINE 10 MG PO SCH (21:00)
[2019-08-03] MEDS: SODIUM CHLORIDE 0.9% 1,000 ML IV SCH (22:13)
[2019-08-03] MEDS: CETIRIZINE 10 MG TABLET PO SCH (22:14)
[2019-08-03] MEDS: rOPINIRole 1 MG TABLET PO SCH (22:14)
[2019-08-03] MEDS: RANITIDINE 150 MG TABLET PO SCH (22:14)
[2019-08-03] MEDS: PANTOPRAZOLE 40 MG TABLET PO SCH (22:15)
[2019-08-03] MEDS: QUEtiapine 25 MG TABLET PO SCH (22:15)
[2019-08-03] MEDS: INSULIN LISPRO 100 UNIT/ML SUBCUT SCH (22:15)
[2019-08-03] MEDS: MAGNESIUM OXIDE 400 MG TABLET PO SCH (22:15)
[2019-08-03] MEDS: levETIRAcetam 500 MG TABLET PO SCH (22:15)
[2019-08-03] MEDS: DONEPEZIL 10 MG TABLET PO SCH (22:15)
[2019-08-03 22:49] LABS: Barbiturates Screen,Urine Negative (Negative); Benzodiazepines Screen,Urine Negative (Negative); Cannabinoid Screen,Urine Negative (Negative); Opiate Screen,Urine Negative (Negative); Phencyclidine Screen,Urine Negative (Negative)
[2019-08-04 01:40] LABS: Basophils % 0.4 % (0.0-0.8); Eosinophils # 0.2 10*3/uL (0.0-0.87); Hematocrit 30.7 VOL% (35.7-47.0); Hemoglobin 9.8 GM/DL (12.0-16.0); Immature Granulocytes % 0.4 %; Immature Granulocytes Absolute 0.03 #; Lymphocytes # 1.5 10*3/uL (1.4-4.0); Mean Corpuscular HGB Conc 31.9 GM/DL (32-36); Mean Corpuscular Volume 91.9 FL (87-102); Mean Platelet Volume 8.3 FL (9.6-12.0); Monocytes % 5.1 % (1.7-12.7); Neutrophils % 72.1 % (38.7-73.9); Platelet Count 301 T/CUMM (130-400); Red Blood Count 3.34 MC/CUMM (3.8-5.5); Red Cell Distribution Width 14.9 % (9.3-17.3); White Blood Count 7.4 T/CUMM (4-12)
[2019-08-04 01:58] LABS: Osmolality,Calculated 280.7 MOS/KG (273-304); Risk Ratio 3.16; VLDL CHOLESTEROL 56.8 MG/DL
[2019-08-04] MEDS: INSULIN LISPRO 100 UNIT/ML SUBCUT SCH ×4 (07:51→21:00)
[2019-08-04] MEDS: VITAMIN E 400 UNIT CAPSULE PO SCH (08:13)
[2019-08-04] MEDS: METOPROLOL SUCCINATE XL 50 MG TABLET PO SCH (08:13)
[2019-08-04] MEDS: CHOLECALCIFEROL 1,000 UNIT TABLET PO SCH (08:13)
[2019-08-04] MEDS: levETIRAcetam 500 MG TABLET PO SCH ×2 (08:13→21:00)
[2019-08-04] MEDS: MAGNESIUM OXIDE 400 MG TABLET PO SCH ×2 (08:13→21:00)
[2019-08-04] MEDS: amLODIPine 10 MG TABLET PO SCH (08:13)
[2019-08-04] MEDS: FERROUS SULFATE 325 MG TABLET PO SCH (08:14)
[2019-08-04] MEDS: LACTOBACILLUS ACIDOPHILUS/BULGARICUS CAPLET PO SCH (08:14)
[2019-08-04] MEDS: PANTOPRAZOLE 40 MG TABLET PO SCH ×2 (08:14→21:00)
[2019-08-04] MEDS: QUEtiapine 25 MG TABLET PO SCH (08:14)
[2019-08-04] MEDS: SODIUM CHLORIDE 0.9% 1,000 ML IV SCH ×2 (08:22→12:51)
[2019-08-04] MEDS ORDERED: MAGNESIUM SULF RIDER 2 GM in PREMIX 1 EACH IV PRN (09:33)
[2019-08-04] MEDS ORDERED: MAGNESIUM SULF RIDER 4 GM in PREMIX 1 EACH IV PRN (09:33)
[2019-08-04 12:37] LABS: Basophils % 0.6 % (0.0-0.8); Eosinophils # 0.1 10*3/uL (0.0-0.87); Eosinophils % 2.1 % (0.00-10.9); Hematocrit 30.4 VOL% (35.7-47.0); Hemoglobin 9.7 GM/DL (12.0-16.0); Immature Granulocytes % 0.6 %; Immature Granulocytes Absolute 0.04 #; Lymphocytes # 1.5 10*3/uL (1.4-4.0); Lymphocytes % 21.9 % (21.3-54.2); Mean Corpuscular HGB Conc 31.9 GM/DL (32-36); Mean Corpuscular Volume 93.5 FL (87-102); Mean Platelet Volume 8.2 FL (9.6-12.0); Monocytes % 5.5 % (1.7-12.7); Neutrophils % 69.3 % (38.7-73.9); Platelet Count 277 T/CUMM (130-400); Red Blood Count 3.25 MC/CUMM (3.8-5.5); Red Cell Distribution Width 15.1 % (9.3-17.3); White Blood Count 6.7 T/CUMM (4-12)
[2019-08-04 12:43] LABS: INR 0.9; PT Patient Result 9.8 SECS (9.6-12.2); Partial Thromboplastin Time 25.1 SECS (20.8-36.0)
[2019-08-04 13:11] LABS: Alanine Aminotransferase < 9 U/L (13-56); Alkaline Phosphatase 54 U/L (45-117); Aspartate Amino Transferase 10 U/L (0-37); Bilirubin,Total < 0.39 MG/DL (0.2-1.0); Blood Urea Nitrogen 10 MG/DL (7-18); Calcium 8.1 MG/DL (8.5-10.1); Estimated Glom Filtration Rate 65 ML/MIN; Glucose 218 MG/DL (74-106); Osmolality,Calculated 278.8 MOS/KG (273-304)
[2019-08-04] MEDS: rOPINIRole 1 MG TABLET PO SCH (20:59)
[2019-08-04] MEDS: RANITIDINE 150 MG TABLET PO SCH (21:00)
[2019-08-04] MEDS: DONEPEZIL 10 MG TABLET PO SCH (21:00)
[2019-08-04] MEDS: CETIRIZINE 10 MG TABLET PO SCH (21:00)
[2019-08-05] MEDS: SODIUM CHLORIDE 0.9% 1,000 ML IV SCH ×4 (04:52→19:03)
[2019-08-05 06:36] LABS: Basophils % 0.3 % (0.0-0.8); Eosinophils # 0.2 10*3/uL (0.0-0.87); Eosinophils % 2.3 % (0.00-10.9); Hemoglobin 9.2 GM/DL (12.0-16.0); Immature Granulocytes % 0.5 %; Immature Granulocytes Absolute 0.03 #; Lymphocytes # 1.7 10*3/uL (1.4-4.0); Lymphocytes % 26.9 % (21.3-54.2); Mean Corpuscular HGB Conc 31.7 GM/DL (32-36); Mean Corpuscular Volume 92.7 FL (87-102); Mean Platelet Volume 8.5 FL (9.6-12.0); Monocytes % 5.6 % (1.7-12.7); Neutrophils % 64.4 % (38.7-73.9); Platelet Count 262 T/CUMM (130-400); Red Blood Count 3.13 MC/CUMM (3.8-5.5); Red Cell Distribution Width 15.1 % (9.3-17.3); White Blood Count 6.5 T/CUMM (4-12)
[2019-08-05 06:56] LABS: Osmolality,Calculated 282.3 MOS/KG (273-304)
[2019-08-05] MEDS: MAGNESIUM OXIDE 400 MG TABLET PO SCH ×2 (08:49→21:41)
[2019-08-05] MEDS: CHOLECALCIFEROL 1,000 UNIT TABLET PO SCH (08:49)
[2019-08-05] MEDS: METOPROLOL SUCCINATE XL 50 MG TABLET PO SCH (08:49)
[2019-08-05] MEDS: VITAMIN E 400 UNIT CAPSULE PO SCH (08:49)
[2019-08-05] MEDS: amLODIPine 10 MG TABLET PO SCH (08:49)
[2019-08-05] MEDS: ASPIRIN EC 81 MG TABLET PO SCH ×2 (08:49→08:54)
[2019-08-05] MEDS: LACTOBACILLUS ACIDOPHILUS/BULGARICUS CAPLET PO SCH (08:49)
[2019-08-05] MEDS: PANTOPRAZOLE 40 MG TABLET PO SCH ×2 (08:49→21:41)
[2019-08-05] MEDS: FERROUS SULFATE 325 MG TABLET PO SCH (08:49)
[2019-08-05] MEDS: levETIRAcetam 500 MG TABLET PO SCH ×2 (08:49→21:41)
[2019-08-05] MEDS: INSULIN LISPRO 100 UNIT/ML SUBCUT SCH ×4 (08:49→21:40)
[2019-08-05] MEDS: RANITIDINE 150 MG TABLET PO SCH (21:41)
[2019-08-05] MEDS: DONEPEZIL 10 MG TABLET PO SCH (21:41)
[2019-08-05] MEDS: rOPINIRole 1 MG TABLET PO SCH (21:41)
[2019-08-05] MEDS: CETIRIZINE 10 MG TABLET PO SCH (21:42)
[2019-08-06] MEDS: INSULIN LISPRO 100 UNIT/ML SUBCUT SCH ×4 (09:07→21:38)
[2019-08-06] MEDS: FERROUS SULFATE 325 MG TABLET PO SCH (09:30)
[2019-08-06] MEDS: METOPROLOL SUCCINATE XL 50 MG TABLET PO SCH (09:30)
[2019-08-06] MEDS: levETIRAcetam 500 MG TABLET PO SCH ×2 (09:30→21:39)
[2019-08-06] MEDS: MAGNESIUM OXIDE 400 MG TABLET PO SCH ×2 (09:30→21:39)
[2019-08-06] MEDS: ASPIRIN EC 81 MG TABLET PO SCH (09:30)
[2019-08-06] MEDS: PANTOPRAZOLE 40 MG TABLET PO SCH ×2 (09:30→21:41)
[2019-08-06] MEDS: LACTOBACILLUS ACIDOPHILUS/BULGARICUS CAPLET PO SCH (09:30)
[2019-08-06] MEDS: amLODIPine 10 MG TABLET PO SCH (09:30)
[2019-08-06] MEDS: VITAMIN E 400 UNIT CAPSULE PO SCH (09:30)
[2019-08-06] MEDS: CHOLECALCIFEROL 1,000 UNIT TABLET PO SCH (09:30)
[2019-08-06] MEDS: SODIUM CHLORIDE 0.9% 1,000 ML IV SCH (10:25)
[2019-08-06] MEDS ORDERED: TUBERCULIN SKIN TEST 0.1 ML SYRINGE INTRADERM ONE (14:18)
[2019-08-06] MEDS: rOPINIRole 1 MG TABLET PO SCH (21:39)
[2019-08-06] MEDS: RANITIDINE 150 MG TABLET PO SCH (21:39)
[2019-08-06] MEDS: DONEPEZIL 10 MG TABLET PO SCH (21:39)
[2019-08-06] MEDS: CETIRIZINE 10 MG TABLET PO SCH (21:40)
[2019-08-07] MEDS: INSULIN LISPRO 100 UNIT/ML SUBCUT SCH (07:41)
[2019-08-07 07:43] VITALS: BP 144/66
[2019-08-07] MEDS: ASPIRIN EC 81 MG TABLET PO SCH (08:28)
[2019-08-07] MEDS: FERROUS SULFATE 325 MG TABLET PO SCH (08:29)
[2019-08-07] MEDS: METOPROLOL SUCCINATE XL 50 MG TABLET PO SCH (08:29)
[2019-08-07] MEDS: MAGNESIUM OXIDE 400 MG TABLET PO SCH (08:29)
[2019-08-07] MEDS: levETIRAcetam 500 MG TABLET PO SCH (08:29)
[2019-08-07] MEDS: VITAMIN E 400 UNIT CAPSULE PO SCH (08:29)
[2019-08-07] MEDS: LACTOBACILLUS ACIDOPHILUS/BULGARICUS CAPLET PO SCH (08:29)
[2019-08-07] MEDS: amLODIPine 10 MG TABLET PO SCH (08:29)
[2019-08-07] MEDS: CHOLECALCIFEROL 1,000 UNIT TABLET PO SCH (08:30)
[2019-08-07] MEDS: PANTOPRAZOLE 40 MG TABLET PO SCH (08:30)
[2019-08-07] MEDS ORDERED: ATORVASTATIN 20 MG TABLET PO SCH (09:00)
== END 2019-08-07 11:26 ==
LOC: N.ED 12:24 → N.EDINP 19:42 → INTOOBSV 19:42 → N.5E 20:37
PROVIDERS: ADMIT Emergency Medicine; ATTEND Emergency Medicine